=== PATIENT | female | born 2005 | race Caucasian/White ===

== ENCOUNTER 2024-09-15 19:35 | Emergency (ER) | payer BC ==
[~2024-09-15] VITALS: Ht 172.7 cm; Wt 50.0 kg
[2024-09-15 19:37] VITALS: O2SAT 98
[2024-09-15 20:05] VITALS: BP 103/70; PULSE 49; RESP 14; TEMP 36.5; O2SAT 100
[2024-09-15] MEDS: LEVETIRACETAM 1000MG PREMIX 100 ML IV ONE (20:47)
[2024-09-15 20:55] LABS: BASOPHILS % 0.6 % (0.0-2.0); EOSINOPHILS % 0.8 % (0.0-5.0); HEMATOCRIT. 36.3 % (36.0-48.0); LYMPHOCYTES % 42.6 % (20.0-50.0); MEAN CORPUSCULAR HEMOGLOBIN 27.7 pg (28.0-32.0); MEAN CORPUSCULAR VOLUME 83.8 fL (81.0-99.0); MEAN PLATELET VOLUME 8.5 fl (7.4-10.4); MONOCYTES % 6.5 % (2.0-8.0); NEUTROPHILS % 49.5 % (40.0-76.0); PLATELET 217 x1000/uL (130-400); RED BLOOD CELL COUNT 4.33 mill/uL (4.2-5.4); WHITE BLOOD COUNT 7.7 x1000/uL (4.5-11.0)
[2024-09-15 21:03] LABS: CHLORIDE 109 mEq/L (98-107); POTASSIUM 3.5 mEq/L (3.5-5.1); SODIUM 140 mEq/L (136-145)
[2024-09-15 21:04] LABS: CALCIUM 8.9 mg/dL (8.7-10.4); CARBON DIOXIDE 24 mEq/L (21-32)
[2024-09-15 21:06] LABS: HCG SCREEN NEGATIVE
[2024-09-15 21:08] LABS: CREATININE 0.7 mg/dL (0.6-1.0)
[2024-09-15 21:09] LABS: ETHANOL BLOOD < 10 mg/dL (<10); GLUCOSE 78 mg/dL (70-105); UREA NITROGEN BLOOD 11 mg/dL (9-23)
== END 2024-09-15 21:36 ==
LOC: ER 19:35
DX: G40.909 Epilepsy, unspecified, not intractable, without status epilepticus (principal); F41.9 Anxiety disorder, unspecified; Z88.1 Allergy status to other antibiotic agents
CPT/HCPCS: 36415; 80048; 80320; 84703; 85025; 99284; J1953; G0480